=== PATIENT | male | born 1970 | race Two or more races ===

== ENCOUNTER 2018-12-31 10:21 | Outpatient (CLI) | payer OTHER ==
[~2018-12-31] VITALS: Ht 182.9 cm; Wt 113.4 kg
== END 2018-12-31 10:40 | disposition home or self-care (01) ==
LOC: OFIC 805 10:21
DX: H61.21 Impacted cerumen, right ear (principal); H66.001 Acute suppurative otitis media without spontaneous rupture of ear drum, right ear; H92.01 Otalgia, right ear; J34.3 Hypertrophy of nasal turbinates

== ENCOUNTER 2018-12-31 11:32 | Outpatient (CLI) | payer OTHER | END 2018-12-31 11:40 | disposition home or self-care (01) | LOC: LAB 11:32 | DX: H61.91 Disorder of right external ear, unspecified (principal) ==

== ENCOUNTER 2019-01-09 08:47 | Outpatient (CLI) | payer OTHER ==
[~2019-01-09] VITALS: Ht 182.9 cm; Wt 113.4 kg
== END 2019-01-09 09:00 | disposition home or self-care (01) ==
LOC: OFIC 805 08:47
DX: H92.01 Otalgia, right ear (principal); H61.21 Impacted cerumen, right ear; H66.001 Acute suppurative otitis media without spontaneous rupture of ear drum, right ear

== ENCOUNTER 2020-12-22 15:30 | Outpatient (CLI) | payer OTHER | END 2020-12-22 16:00 | disposition home or self-care (01) | LOC: LAB 15:30 | PROVIDERS: ATTEND Otolaryngology Otology & Neurotology | DX: H60.93 Unspecified otitis externa, bilateral (principal) ==

== ENCOUNTER → 2020-12-22 | Outpatient (CLI) | payer OTHER | END | disposition home or self-care (01) | LOC: OFIC 805 13:41 | PROVIDERS: ATTEND Otolaryngology Otology & Neurotology | DX: H66.001 Acute suppurative otitis media without spontaneous rupture of ear drum, right ear (principal); H92.01 Otalgia, right ear; J34.3 Hypertrophy of nasal turbinates; H60.391 Other infective otitis externa, right ear ==

== ENCOUNTER 2022-04-14 06:00 | Day surgery (SDC) | payer OTHER ==
[~2022-04-14] VITALS: Ht 182.9 cm; Wt 104.3 kg
[2022-04-14] MEDS ORDERED: CLEOCIN HCL300 MG PO (13:16)
[2022-04-14] MEDS ORDERED: CILOXAN5 ML OTIC (13:16)
== END 2022-04-14 15:45 | disposition home or self-care (01) ==
LOC: CIR.AMB 06:00
PROVIDERS: ATTEND Otolaryngology Otology & Neurotology
DX: H90.12 Conductive hearing loss, unilateral, left ear, with unrestricted hearing on the contralateral side (principal); H71.22 Cholesteatoma of mastoid, left ear; H72.12 Attic perforation of tympanic membrane, left ear; Z20.822 Contact with and (suspected) exposure to COVID-19; Z88.0 Allergy status to penicillin; Z88.2 Allergy status to sulfonamides; Z88.8 Allergy status to other drugs, medicaments and biological substances